=== PATIENT | female | born 1945 | race Caucasian/White ===

== ENCOUNTER 2024-08-27 22:18 | Emergency (ER) | payer BC, MEDICAID ==
[2024-08-28 00:30] VITALS: BP 176/71; PULSE 55; RESP 19; TEMP 36.6; O2SAT 98
[2024-08-28] MEDS ORDERED: CYCL10TA21 MT (00:43)
[2024-08-28] MEDS ORDERED: IBUP-2029 MT (00:43)
== END 2024-08-28 01:05 | disposition home or self-care (01) ==
LOC: ER 22:38
DX: S09.90XA Unspecified injury of head, initial encounter (principal); M25.531 Pain in right wrist; W01.0XXA Fall on same level from slipping, tripping and stumbling without subsequent striking against object, initial encounter; Y93.89 Activity, other specified; Y92.89 Other specified places as the place of occurrence of the external cause; Y99.8 Other external cause status
CPT/HCPCS: 70486; 73060; 73110; 99284

== ENCOUNTER 2024-10-06 16:01 | Emergency (ER) | payer MEDICARE, MEDICAID ==
[~2024-10-06] VITALS: Ht 165.1 cm; Wt 49.0 kg
[~2024-10-06 16:01] MED LIST: CYCL10TA21 MT; IBUP-2029 MT
[2024-10-06 16:24] VITALS: O2SAT 96
[2024-10-06] MEDS: KETOROLAC 15MG/ML VIAL IV ONE (18:33)
[2024-10-06 19:41] LABS: HEMATOCRIT 40.7 % (36.0-48.0); HEMOGLOBIN 12.9 g/dL (12.0-16.0); MEAN CORPUSCULAR HEMOGLOBIN 26.3 pg (28.0-32.0); MEAN CORPUSCULAR HGB CONC 31.7 g/dL (31.0-37.0); PLATELET 138 x1000/uL (130-400); RED BLOOD CELL COUNT 4.91 mill/uL (4.2-5.4); RED CELL DISTRIBUTION WIDTH 16.1 % (11.6-14.6); WHITE BLOOD COUNT 4.8 x1000/uL (4.5-11.0)
[2024-10-06 19:51] LABS: CHLORIDE 105 mEq/L (98-107); POTASSIUM 4.4 mEq/L (3.5-5.1); SODIUM 142 mEq/L (136-145)
[2024-10-06 19:52] LABS: CALCIUM 8.9 mg/dL (8.7-10.4); CARBON DIOXIDE 31 mEq/L (21-32); PARTIAL THROMBOPLASTIN TIME 28.2 sec (23.4-31.0); PROTHROMBIN TIME 10.8 sec (9.6-11.0)
[2024-10-06 19:57] LABS: CREATININE 0.8 mg/dL (0.6-1.0); GLUCOSE 96 mg/dL (70-105); UREA NITROGEN BLOOD 17 mg/dL (9-23)
[2024-10-06] MEDS ORDERED: IBUP-2029 MT (21:04)
[2024-10-06 21:34] VITALS: BP 140/110; PULSE 78; RESP 14; TEMP 37.1; O2SAT 96
[2024-10-06] MEDS: IOHEXOL-300 100 ML BOTTLE ONE (21:34)
== END 2024-10-06 21:44 | disposition home or self-care (01) ==
LOC: ER 16:01
DX: S22.41XA Multiple fractures of ribs, right side, initial encounter for closed fracture (principal); E78.00 Pure hypercholesterolemia, unspecified; I10 Essential (primary) hypertension; K76.89 Other specified diseases of liver; W22.09XA Striking against other stationary object, initial encounter; Y93.89 Activity, other specified; Y92.89 Other specified places as the place of occurrence of the external cause; Y99.8 Other external cause status
CPT/HCPCS: 99285; 71260; 96374; 80048; 85027; 85610; 85730; 86850; 86900; 86901; 36415; 74177; J1885; Q9967